=== PATIENT | female | born 1955 | race Caucasian/White ===

== ENCOUNTER 2018-03-06 09:59 | Outpatient (CLI) | payer OTHER | END 2018-03-06 10:14 | disposition home or self-care (01) | LOC: RAD 09:59 → MAMO-SONO 10:15 | DX: Z12.31 Encounter for screening mammogram for malignant neoplasm of breast (principal); C50.919 Malignant neoplasm of unspecified site of unspecified female breast; N64.89 Other specified disorders of breast; I11.9 Hypertensive heart disease without heart failure ==

== ENCOUNTER 2018-03-08 07:39 | Outpatient (CLI) | payer OTHER | END 2018-03-08 07:56 | disposition home or self-care (01) | LOC: NUCLEAR 07:39 | DX: I11.9 Hypertensive heart disease without heart failure (principal) ==

== ENCOUNTER 2018-09-08 06:59 | Outpatient (CLI) | payer OTHER | END 2018-09-08 07:10 | disposition home or self-care (01) | LOC: LAB 06:59 | DX: E03.9 Hypothyroidism, unspecified (principal); E78.2 Mixed hyperlipidemia; E11.9 Type 2 diabetes mellitus without complications; E56.8 Deficiency of other vitamins; N39.0 Urinary tract infection, site not specified; Z12.11 Encounter for screening for malignant neoplasm of colon; R19.5 Other fecal abnormalities; E55.9 Vitamin D deficiency, unspecified; N19 Unspecified kidney failure; C18.0 Malignant neoplasm of cecum; K92.1 Melena; D50.8 Other iron deficiency anemias; R80.8 Other proteinuria ==

== ENCOUNTER 2019-01-25 06:39 | Outpatient (CLI) | payer OTHER | END 2019-01-25 07:06 | disposition home or self-care (01) | LOC: LAB 06:39 | DX: D50.8 Other iron deficiency anemias (principal); E03.8 Other specified hypothyroidism; E78.2 Mixed hyperlipidemia; I11.9 Hypertensive heart disease without heart failure; E56.8 Deficiency of other vitamins; N39.0 Urinary tract infection, site not specified; Z12.11 Encounter for screening for malignant neoplasm of colon; R19.5 Other fecal abnormalities; E55.9 Vitamin D deficiency, unspecified; N19 Unspecified kidney failure; E11.9 Type 2 diabetes mellitus without complications; R80.8 Other proteinuria; C18.0 Malignant neoplasm of cecum; K92.1 Melena ==

== ENCOUNTER 2019-06-16 07:20 | Outpatient (CLI) | payer OTHER | END 2019-06-16 07:33 | disposition home or self-care (01) | LOC: LAB 07:20 | DX: D50.8 Other iron deficiency anemias (principal); E03.8 Other specified hypothyroidism; E78.2 Mixed hyperlipidemia; I11.9 Hypertensive heart disease without heart failure; E56.8 Deficiency of other vitamins; N39.0 Urinary tract infection, site not specified; Z12.11 Encounter for screening for malignant neoplasm of colon; R19.5 Other fecal abnormalities; E55.9 Vitamin D deficiency, unspecified; N19 Unspecified kidney failure; E11.9 Type 2 diabetes mellitus without complications; R80.8 Other proteinuria; K92.1 Melena ==

== ENCOUNTER 2019-08-28 10:06 | Outpatient (CLI) | payer OTHER | END 2019-08-28 16:05 | disposition home or self-care (01) | LOC: NUCLEAR 10:06 | DX: M81.0 Age-related osteoporosis without current pathological fracture (principal) ==

== ENCOUNTER 2019-11-01 06:15 | Outpatient (CLI) | payer OTHER | END 2019-11-01 06:28 | disposition home or self-care (01) | LOC: LAB 06:15 | DX: E53.8 Deficiency of other specified B group vitamins (principal); D50.8 Other iron deficiency anemias; E03.8 Other specified hypothyroidism; I11.9 Hypertensive heart disease without heart failure; E56.8 Deficiency of other vitamins; N39.0 Urinary tract infection, site not specified; Z12.11 Encounter for screening for malignant neoplasm of colon; E55.9 Vitamin D deficiency, unspecified; N19 Unspecified kidney failure; E11.9 Type 2 diabetes mellitus without complications; R80.8 Other proteinuria; C18.0 Malignant neoplasm of cecum; K92.1 Melena; R10.84 Generalized abdominal pain; E78.49 Other hyperlipidemia; R07.89 Other chest pain ==

== ENCOUNTER → 2020-11-10 | Outpatient (CLI) | payer OTHER ==
[~2020-11-10] MED LIST: BONIVA150 MG
== END | disposition home or self-care (01) ==
LOC: PPH VACUNA
PROVIDERS: ATTEND Emergency Medicine Pediatric Emergency Medicine
DX: Z23 Encounter for immunization (principal)

== ENCOUNTER 2020-11-12 17:22 | Emergency (ER) | payer OTHER ==
[~2020-11-12] VITALS: Ht 157.5 cm; Wt 50.3 kg
== END 2020-11-12 19:37 | disposition home or self-care (01) ==
LOC: ER 17:22
DX: L27.1 Localized skin eruption due to drugs and medicaments taken internally (principal); T50.995A Adverse effect of other drugs, medicaments and biological substances, initial encounter

== ENCOUNTER 2020-12-13 07:23 | Outpatient (CLI) | payer OTHER | END 2020-12-13 07:28 | disposition home or self-care (01) | LOC: LAB 07:23 | PROVIDERS: ATTEND Internal Medicine Geriatric Medicine | DX: D50.8 Other iron deficiency anemias (principal); E03.8 Other specified hypothyroidism; E78.2 Mixed hyperlipidemia; I11.9 Hypertensive heart disease without heart failure; E56.8 Deficiency of other vitamins; N39.0 Urinary tract infection, site not specified; Z12.11 Encounter for screening for malignant neoplasm of colon; R19.5 Other fecal abnormalities; E55.9 Vitamin D deficiency, unspecified; N19 Unspecified kidney failure; E11.9 Type 2 diabetes mellitus without complications; R80.9 Proteinuria, unspecified; C18.0 Malignant neoplasm of cecum ==

== ENCOUNTER → 2021-04-21 06:53 | Outpatient (CLI) | payer OTHER ==
[~2021-04-21 06:53] MED LIST changes: +SKELAXIN800 MG PO; +VOLTAREN100 GM TOP
== END | disposition home or self-care (01) ==
LOC: LAB 06:53
PROVIDERS: ATTEND Internal Medicine Geriatric Medicine
DX: E03.8 Other specified hypothyroidism (principal); D50.8 Other iron deficiency anemias; E78.2 Mixed hyperlipidemia; I11.9 Hypertensive heart disease without heart failure; E56.8 Deficiency of other vitamins; N39.0 Urinary tract infection, site not specified; Z12.11 Encounter for screening for malignant neoplasm of colon; R19.5 Other fecal abnormalities; E55.9 Vitamin D deficiency, unspecified; R80.8 Other proteinuria; C18.0 Malignant neoplasm of cecum

== ENCOUNTER 2021-05-18 07:02 | Emergency (ER) | payer OTHER ==
[~2021-05-18] VITALS: Ht 157.5 cm; Wt 50.8 kg
[~2021-05-18 07:02] MED LIST changes: -SKELAXIN800 MG PO; -VOLTAREN100 GM TOP
[2021-05-18] MEDS ORDERED: VOLTAREN100 GM TOP (09:58)
[2021-05-18] MEDS ORDERED: SKELAXIN800 MG PO (09:58)
== END 2021-05-18 10:07 | disposition home or self-care (01) ==
LOC: ER 07:02
DX: M54.12 Radiculopathy, cervical region (principal)

== ENCOUNTER 2021-06-24 08:00 | Outpatient (CLI) | payer OTHER ==
[~2021-06-24 08:00] MED LIST changes: +SKELAXIN800 MG PO; +VOLTAREN100 GM TOP
== END 2021-06-24 08:30 | disposition home or self-care (01) ==
LOC: PPH VACUNA 08:00
PROVIDERS: ATTEND Emergency Medicine Pediatric Emergency Medicine
DX: Z23 Encounter for immunization (principal)

== ENCOUNTER 2021-09-09 14:44 | Outpatient (CLI) | payer OTHER | END 2021-09-09 14:46 | disposition home or self-care (01) | LOC: MAMO-SONO 14:44 | PROVIDERS: ATTEND Internal Medicine Geriatric Medicine | DX: N60.11 Diffuse cystic mastopathy of right breast (principal); N60.12 Diffuse cystic mastopathy of left breast; Z12.31 Encounter for screening mammogram for malignant neoplasm of breast; I10 Essential (primary) hypertension; N64.4 Mastodynia; C50.919 Malignant neoplasm of unspecified site of unspecified female breast; R06.02 Shortness of breath; I11.9 Hypertensive heart disease without heart failure ==

== ENCOUNTER 2021-10-31 07:16 | Outpatient (CLI) | payer OTHER | END 2021-10-31 07:21 | disposition home or self-care (01) | LOC: LAB 07:16 | PROVIDERS: ATTEND Internal Medicine Geriatric Medicine | DX: D50.9 Iron deficiency anemia, unspecified (principal); E03.9 Hypothyroidism, unspecified; E78.2 Mixed hyperlipidemia; I11.9 Hypertensive heart disease without heart failure; E56.8 Deficiency of other vitamins; N39.0 Urinary tract infection, site not specified; Z12.11 Encounter for screening for malignant neoplasm of colon; R19.5 Other fecal abnormalities; E55.9 Vitamin D deficiency, unspecified; N19 Unspecified kidney failure; E11.9 Type 2 diabetes mellitus without complications; R80.9 Proteinuria, unspecified ==

== ENCOUNTER 2022-05-03 06:22 | Outpatient (CLI) | payer OTHER | END 2022-05-03 06:23 | disposition home or self-care (01) | LOC: LAB 06:22 | PROVIDERS: ATTEND Internal Medicine Geriatric Medicine | DX: D64.9 Anemia, unspecified (principal); R10.9 Unspecified abdominal pain; E03.9 Hypothyroidism, unspecified; E78.5 Hyperlipidemia, unspecified; E55.9 Vitamin D deficiency, unspecified; E11.9 Type 2 diabetes mellitus without complications; D50.9 Iron deficiency anemia, unspecified; E78.2 Mixed hyperlipidemia; I11.9 Hypertensive heart disease without heart failure; E56.8 Deficiency of other vitamins; N39.0 Urinary tract infection, site not specified; R19.5 Other fecal abnormalities; N19 Unspecified kidney failure; Z12.11 Encounter for screening for malignant neoplasm of colon ==

== ENCOUNTER 2022-05-07 08:51 | Outpatient (CLI) | payer OTHER | END 2022-05-07 08:52 | disposition home or self-care (01) | LOC: NUCLEAR 08:51 | PROVIDERS: ATTEND Internal Medicine Geriatric Medicine | DX: M81.0 Age-related osteoporosis without current pathological fracture (principal); M15.0 Primary generalized (osteo)arthritis ==

== ENCOUNTER 2022-12-04 07:11 | Outpatient (CLI) | payer OTHER | END 2022-12-04 07:12 | disposition home or self-care (01) | LOC: LAB 07:11 | PROVIDERS: ATTEND Internal Medicine Geriatric Medicine | DX: D50.9 Iron deficiency anemia, unspecified (principal); E03.9 Hypothyroidism, unspecified; E78.2 Mixed hyperlipidemia; I11.9 Hypertensive heart disease without heart failure; E56.8 Deficiency of other vitamins; N39.0 Urinary tract infection, site not specified; Z12.11 Encounter for screening for malignant neoplasm of colon; E55.9 Vitamin D deficiency, unspecified; N19 Unspecified kidney failure; E11.9 Type 2 diabetes mellitus without complications; K92.1 Melena ==

== ENCOUNTER → 2023-10-14 06:16 | Outpatient (CLI) | payer OTHER ==
[2023-10-14 07:04] LABS: PH,URINE 6.5 (5.0-8.0); URINE APPEARANCE Clear; URINE BILIRRUBIN Negative (NEGATIVE); URINE BLOOD Negative; URINE COLOR Yellow; URINE GLUCOSE Negative (NEGATIVE); URINE LEUKOCYTE Negative; URINE NITRATE Negative; URINE PROTEIN Negative (NEGATIVE); URINE UROBILINOGEN 0.2 E.U./dl
[2023-10-14 07:08] LABS: URINE BACTERIA 127.2 uL (0.0-1933); URINE EPITHELIAL CELLS 17.5 uL (0.0-38.8); URINE WBC 2.4 uL (0.0-23.2)
[2023-10-14 07:10] LABS: HEMATOCRIT 41.4 % (36.0-45.00); MEAN CELL VOLUME 94.6 fL (80.00-100.00); MEAN CORPUSCULAR HEMOGLOBIN 32.1 pg (27.00-32.0); MEAN CORPUSCULAR HGB CONC 33.9 g/dl (32.0-36.0); PLATELET COUNT 326 K/uL (150-450); RED BLOOD COUNT 4.37 M/uL (4.00-6.00); RED CELL DISTRIBUTION WIDTH 14.1 % (11.5-14.5)
[2023-10-14 08:15] LABS: ALBUMIN 3.9 gm/dL (3.4-5.0); BILIRUBIN TOTAL 0.71 mg/dL (0.3-1.2); CALCIUM 9.4 mg/dL (8.5-10.1); CHOL HDL RATIO 2.7 (0-5.0); CREATININE SERUM 0.65 mg/dL (0.55-1.02); GFR 90.11; GLOBULINA 2.7 G/DL (2.4-3.5); POTASSIUM 4.02 mEq/L (3.5-5.1); TOTAL PROTEIN 6.6 gm/dL (6.4-8.2); TSH 2.55 uIU/mL (0.358-3.74)
== END | disposition home or self-care (01) ==
LOC: LAB 06:16
PROVIDERS: ATTEND Internal Medicine Geriatric Medicine
DX: D50.9 Iron deficiency anemia, unspecified (principal); E30.9 Disorder of puberty, unspecified; E78.2 Mixed hyperlipidemia; I11.9 Hypertensive heart disease without heart failure; E56.8 Deficiency of other vitamins; N39.0 Urinary tract infection, site not specified; Z12.11 Encounter for screening for malignant neoplasm of colon; R19.5 Other fecal abnormalities; E55.9 Vitamin D deficiency, unspecified; N19 Unspecified kidney failure; E11.9 Type 2 diabetes mellitus without complications

== ENCOUNTER 2024-06-20 06:07 | Outpatient (CLI) | payer OTHER ==
[2024-06-20 07:12] LABS: HEMATOCRIT 40.6 % (36.0-45.00); HEMOGLOBIN 13.7 g/dL (12.0-15.00); MEAN CELL VOLUME 95.7 fL (80.00-100.00); MEAN CORPUSCULAR HEMOGLOBIN 32.4 pg (27.00-32.0); MEAN CORPUSCULAR HGB CONC 33.8 g/dl (32.0-36.0); PLATELET COUNT 310 K/uL (150-450); RED BLOOD COUNT 4.24 M/uL (4.00-6.00); RED CELL DISTRIBUTION WIDTH 13.6 % (11.5-14.5)
[2024-06-20 08:08] LABS: ALBUMIN 3.8 gm/dL (3.4-5.0); BILIRUBIN TOTAL 0.6 mg/dL (0.3-1.2); CHOL HDL RATIO 2.2 (0-5.0); CREATININE SERUM 0.6 mg/dL (0.55-1.02); GFR 98.55; GLOBULINA 2.8 G/DL (2.4-3.5); POTASSIUM 4.35 mEq/L (3.5-5.1); TOTAL PROTEIN 6.6 gm/dL (6.4-8.2)
== END 2024-06-20 06:08 | disposition home or self-care (01) ==
LOC: LAB 06:07
PROVIDERS: ATTEND Internal Medicine
DX: D64.9 Anemia, unspecified (principal); R10.9 Unspecified abdominal pain; E78.5 Hyperlipidemia, unspecified; R80.9 Proteinuria, unspecified; E11.9 Type 2 diabetes mellitus without complications

== ENCOUNTER 2024-10-13 07:20 | Outpatient (CLI) | payer OTHER ==
[2024-10-13 09:45] LABS: URINE APPEARANCE Clear; URINE BILIRRUBIN Negative (NEGATIVE); URINE BLOOD Negative; URINE COLOR Yellow; URINE GLUCOSE Negative (NEGATIVE); URINE KETONE Negative (NEGATIVE); URINE LEUKOCYTE Negative; URINE NITRATE Negative; URINE PROTEIN Negative (NEGATIVE); URINE UROBILINOGEN 0.2 E.U./dl
[2024-10-13 09:50] LABS: URINE BACTERIA 67.3 uL (0.0-1933); URINE EPITHELIAL CELLS 15.7 uL (0.0-38.8); URINE RBC 4.1 uL (0.0-20.8)
[2024-10-13 09:58] LABS: ALBUMIN 3.8 gm/dL (3.4-5.0); BILIRUBIN TOTAL 0.54 mg/dL (0.3-1.2); CALCIUM 9.5 mg/dL (8.5-10.1); CHOL HDL RATIO 2.5 (0-5.0); CREATININE SERUM 0.61 mg/dL (0.55-1.02); GFR 96.68; GLOBULINA 2.7 G/DL (2.4-3.5); POTASSIUM 3.87 mEq/L (3.5-5.1); TOTAL PROTEIN 6.5 gm/dL (6.4-8.2)
[2024-10-13 10:01] LABS: HEMATOCRIT 40.9 % (36.0-45.00); HEMOGLOBIN 13.7 g/dL (12.0-15.00); MEAN CELL VOLUME 96.2 fL (80.00-100.00); MEAN CORPUSCULAR HEMOGLOBIN 32.3 pg (27.00-32.0); MEAN CORPUSCULAR HGB CONC 33.6 g/dl (32.0-36.0); PLATELET COUNT 291 K/uL (150-450); RED BLOOD COUNT 4.25 M/uL (4.00-6.00); RED CELL DISTRIBUTION WIDTH 13.8 % (11.5-14.5)
[2024-10-13 10:02] LABS: URINE WBC 1.1 uL (0.0-23.2)
== END 2024-10-13 07:23 | disposition home or self-care (01) ==
LOC: LAB 07:20
PROVIDERS: ATTEND Internal Medicine Geriatric Medicine
DX: D50.9 Iron deficiency anemia, unspecified (principal); E03.9 Hypothyroidism, unspecified; E78.2 Mixed hyperlipidemia; I11.9 Hypertensive heart disease without heart failure; E56.8 Deficiency of other vitamins; N39.0 Urinary tract infection, site not specified; Z12.11 Encounter for screening for malignant neoplasm of colon; R19.5 Other fecal abnormalities; E55.9 Vitamin D deficiency, unspecified; N19 Unspecified kidney failure; E11.9 Type 2 diabetes mellitus without complications

== ENCOUNTER 2025-03-18 07:49 | Outpatient (CLI) | payer OTHER | END 2025-03-18 07:52 | disposition home or self-care (01) | LOC: MAMO-SONO 07:49 | PROVIDERS: ATTEND Internal Medicine Geriatric Medicine | DX: N63.0 Unspecified lump in unspecified breast (principal); Z12.31 Encounter for screening mammogram for malignant neoplasm of breast; N64.4 Mastodynia; N60.11 Diffuse cystic mastopathy of right breast; N60.12 Diffuse cystic mastopathy of left breast; C50.919 Malignant neoplasm of unspecified site of unspecified female breast ==

== ENCOUNTER 2025-03-23 07:19 | Outpatient (CLI) | payer OTHER ==
[2025-03-23 09:14] LABS: BASO % 0.8 % (0.1-1.2); EOS % 2.6 % (0.7-7.0); HEMATOCRIT 42.6 % (34.1-44.9); HEMOGLOBIN 13.8 g/dL (11.2-15.7); LYMPH # 1.29 (1.18-3.74); LYMPH % 33.9 % (19.3-53.1); MEAN CORPUSCULAR HEMOGLOBIN 30.5 pg (25.6-32.2); MONO # 0.43 (0.24-0.82); MONO % 11.3 % (4.7-12.5); NEUT # 1.93 (1.56-6.13); NEUT % 50.9 % (34.0-71.1); PLATELET COUNT 298 K/uL (163-369); RED BLOOD COUNT 4.52 M/uL (3.93-5.22); RED CELL DISTRIBUTION WIDTH 13.2 % (11.6-14.4)
[2025-03-23 09:54] LABS: ALBUMIN 3.9 gm/dL (3.4-5.0); BILIRUBIN TOTAL 0.62 mg/dL (0.3-1.2); CALCIUM 9.5 mg/dL (8.5-10.1); CREATININE SERUM 0.69 mg/dL (0.55-1.02); GFR 83.63; GLOBULINA 2.6 G/DL (2.4-3.5); POTASSIUM 4.53 mEq/L (3.5-5.1); TOTAL PROTEIN 6.5 gm/dL (6.4-8.2); TSH 1.66 uIU/mL (0.358-3.74)
[2025-03-23 09:56] LABS: URINE APPEARANCE Clear; URINE BILIRRUBIN Negative (NEGATIVE); URINE BLOOD Negative; URINE COLOR Yellow; URINE GLUCOSE Negative (NEGATIVE); URINE KETONE Negative (NEGATIVE); URINE LEUKOCYTE Negative; URINE NITRATE Negative; URINE PROTEIN Negative (NEGATIVE); URINE UROBILINOGEN 0.2 E.U./dl
[2025-03-23 10:00] LABS: URINE BACTERIA 37.9 uL (0.0-1933); URINE EPITHELIAL CELLS 9.1 uL (0.0-38.8); URINE RBC 7.6 uL (0.0-20.8)
[2025-03-23 10:10] LABS: URINE CAST 0.14 uL (0.0-1.40); URINE WBC 1.5 uL (0.0-23.2)
== END 2025-03-23 07:22 | disposition home or self-care (01) ==
LOC: LAB 07:19
PROVIDERS: ATTEND Internal Medicine Geriatric Medicine
DX: D50.9 Iron deficiency anemia, unspecified (principal); E03.9 Hypothyroidism, unspecified; E78.2 Mixed hyperlipidemia; I11.9 Hypertensive heart disease without heart failure; E56.8 Deficiency of other vitamins; N39.0 Urinary tract infection, site not specified; Z12.11 Encounter for screening for malignant neoplasm of colon; R19.5 Other fecal abnormalities; E55.9 Vitamin D deficiency, unspecified; N19 Unspecified kidney failure; E11.9 Type 2 diabetes mellitus without complications

== ENCOUNTER 2025-08-24 07:08 | Outpatient (CLI) | payer OTHER ==
[2025-08-24 08:28] LABS: BASO % 1.6 % (0.1-1.2); EOS # 0.05 (0.04-0.54); EOS % 1.3 % (0.7-7.0); LYMPH # 1.37 (1.18-3.74); LYMPH % 35.7 % (19.3-53.1); MEAN PLATELET VOLUME 8.40 fl (9.4-12.4); MONO # 0.40 (0.24-0.82); MONO % 10.4 % (4.7-12.5); NEUT # 1.94 (1.56-6.13); NEUT % 50.5 % (34.0-71.1); RED CELL DISTRIBUTION WIDTH 13.2 % (11.6-14.4)
[2025-08-24 09:13] LABS: ALT/SGPT 21.0 U/L (12-78); AST/SGOT 20.0 U/L (15-37); BILIRUBIN TOTAL 0.82 mg/dL (0.3-1.2); BUN CREA RATIO 22.0 (7.0-25.0); CHOL HDL RATIO 2.1 (0-5.0); CREATININE SERUM 0.58 mg/dL (0.55-1.02); GFR 102.19; GLOBULINA 2.9 G/DL (2.4-3.5); GLUCOSE FASTING 94.0 mg/dL (65-100); HDL 123.0 mg/dl (40-60); LDL 113.0 mg/dl (0-130); OSMOLALITY SERUM 287.0 MOSM/KG (275-295); VLDL 17.0 (0-39)
== END 2025-08-24 07:14 | disposition home or self-care (01) ==
LOC: LAB 07:08
PROVIDERS: ATTEND Internal Medicine Geriatric Medicine
DX: D64.9 Anemia, unspecified (principal); R10.9 Unspecified abdominal pain; E78.5 Hyperlipidemia, unspecified; R80.9 Proteinuria, unspecified; E11.9 Type 2 diabetes mellitus without complications; E53.8 Deficiency of other specified B group vitamins